=== PATIENT | female | born 1985 | race Two or more races ===

== ENCOUNTER 2018-04-06 20:08 | Emergency (ER) | payer SELFPAY ==
[~2018-04-06] VITALS: Ht 157.5 cm; Wt 80.7 kg
[2018-04-06 20:33] LABS: BASOPHILS # (AUTO) 0.02 x10^3/uL (0-0.1); BASOPHILS % (AUTO) 0 % (0-1); EOSINOPHILS # (AUTO) 0.11 x10^3/uL (0-0.4); EOSINOPHILS % (AUTO) 2 % (1-7); LYMPHOCYTES # (AUTO) 1.75 x10^3/uL (1-3.4); LYMPHOCYTES % (AUTO) 26 % (22-44); MD NO; MEAN CORPUSCULAR HEMOGLOBIN 27.6 pg (27.0-34.8); MEAN CORPUSCULAR HGB CONC 33.3 g/dL (32.4-35.8); MEAN CORPUSCULAR VOLUME 82.9 fL (80-100); MEAN PLATELET VOLUME 8.5 fL (7.4-10.4); MONOCYTES # (AUTO) 0.49 x10^3/uL (0.2-0.8); MONOCYTES % (AUTO) 7 % (2-9); NEUTROPHILS # (AUTO) 4.45 x10^3/uL (1.8-6.8); NEUTROPHILS % (AUTO) 65 % (42-75); PLATELET COUNT 321 x10^3/uL (130-400); RED BLOOD COUNT 4.42 x10^6/uL (3.82-5.3); RED CELL DISTRIBUTION WIDTH 14.1 % (9.6-15.2)
[2018-04-06 20:36] LABS: ANION GAP 7 mmol/L (5-15); CALCIUM 8.8 mg/dL (8.5-10.1); CHLORIDE 106 mmol/L (98-107); CREATININE 0.81 mg/dL (0.55-1.02)
[2018-04-06 20:37] LABS: ALANINE AMINOTRANSFERASE 27 U/L (12-78); ALBUMIN 3.5 g/dL (3.4-5.0)
[2018-04-06 20:41] LABS: ALKALINE PHOSPHATASE 86 U/L (45-117); BILIRUBIN,TOTAL 0.2 mg/dL (0.2-1.0); TOTAL PROTEIN 7.9 g/dL (6.4-8.2)
[2018-04-06 20:50] LABS: CULTURE INDICATED? NO; MICROSCOPIC NOT IND
[2018-04-06] MEDS ORDERED: MAALOX/HYOSCYAMINE/LIDOCAINE 45 ML BTL PO ONE (21:00)
[2018-04-06] MEDS ORDERED: ONDANSETRON ODT 4 MG PO ONE (21:00)
[2018-04-06] MEDS ORDERED: ONDANSETRON ODT 4 MG ONE (21:11)
[2018-04-06] MEDS ORDERED: MAALOX/HYOSCYAMINE/LIDOCAINE 45 ML BTL ONE (21:11)
[2018-04-06] MEDS ORDERED: OXYcodone/APAP 5/325MG TABLET ONE (22:41)
[2018-04-06 22:45] VITALS: BP 114/69
[2018-04-06] MEDS ORDERED: OXYcodone/APAP 5/325MG TABLET PO ONE (23:00)
== END 2018-04-06 23:21 | disposition home or self-care (01) ==
LOC: ED 21:53
DX: K29.00 Acute gastritis without bleeding (principal)
CPT/HCPCS: 36415; 76700; 80053; 81003; 83690; 84703; 85025; 99285; Q0162

== ENCOUNTER 2020-05-30 20:47 | Emergency (ER) | payer SELFPAY ==
[~2020-05-30] VITALS: Ht 157.5 cm; Wt 88.0 kg
[2020-05-30 21:33] LABS: BASOPHILS % (AUTO) 1 % (0-1); EOSINOPHILS % (AUTO) 2 % (1-7); LYMPHOCYTES % (AUTO) 25 % (22-44); MEAN CORPUSCULAR HEMOGLOBIN 22.5 pg (27.0-34.8); MEAN CORPUSCULAR HGB CONC 30.6 g/dL (32.4-35.8); MEAN PLATELET VOLUME 7.9 fL (7.4-10.4); MONOCYTES % (AUTO) 7 % (2-9); NEUTROPHILS % (AUTO) 66 % (42-75); PLATELET COUNT 405 x10^3/uL (130-400); RED BLOOD COUNT 4.55 x10^6/uL (3.82-5.3); RED CELL DISTRIBUTION WIDTH 24.4 % (9.6-15.2)
[2020-05-30 21:46] LABS: ALBUMIN 3.5 g/dL (3.4-5.0); ANION GAP 4 mmol/L (5-15); CALCIUM 8.7 mg/dL (8.5-10.1); CHLORIDE 106 mmol/L (98-107)
[2020-05-30 21:47] LABS: CREATININE 0.79 mg/dL (0.55-1.02)
[2020-05-30 22:00] LABS: MD SCAN
--- NOTE | 2020-05-30 22:59 | NUR ---
REPEAT VS DONE
[2020-05-31 00:13] VITALS: BP 122/65
--- NOTE | 2020-05-31 00:17 | NUR ---
vss, pt awaiting dispo.
== END 2020-05-31 00:42 | disposition home or self-care (01) ==
LOC: ED 05-31 00:30
DX: K62.5 Hemorrhage of anus and rectum (principal); K64.4 Residual hemorrhoidal skin tags
CPT/HCPCS: 36415; 80048; 82040; 85025; 99283